=== PATIENT | female | born 1960 | race African-American/Black ===

== ENCOUNTER 2021-01-31 21:23 | Inpatient (IN) ==
[2021-01-31] MEDS ORDERED: LEVOFLOXACIN INJ 750 MG/150 ML PREMIX IV SCH (23:45)
[2021-01-31] MEDS ORDERED: ZALEPLON 5 MG CAPSULE PO PRN (23:48)
[2021-01-31] MEDS ORDERED: guaiFENesin/DM ER 600-30 MG TABLET PO PRN (23:48)
[2021-01-31] MEDS ORDERED: GLUCAGON 1 MG VIAL IM PRN (23:48)
[2021-01-31] MEDS ORDERED: DOCUSATE SODIUM 100 MG CAPSULE PO PRN (23:48)
[2021-01-31] MEDS ORDERED: hydrALAZINE 20 MG/1 ML VIAL IV PRN (23:48)
[2021-01-31] MEDS ORDERED: diphenhydrAMINE CAP 25 MG CAPSULE PO PRN (23:48)
[2021-01-31] MEDS ORDERED: DEXTROSE 50% 25 GM/50 ML VIAL IV PRN (23:48)
[2021-01-31] MEDS ORDERED: NICOTINE 21 MG/24 HR PATCH TRANSDERM PRN (23:48)
[2021-01-31] MEDS ORDERED: AZITHROMYCIN INJ 500 MG in SODIUM CHLORIDE 0.9% 250 ML IV ONE (23:51)
[2021-02-01] MEDS: cefTRIAXone 1,000 MG in SODIUM CHLORIDE 0.9% 100 ML IV SCH ×2 (00:35→23:02)
[2021-02-01 01:15] LABS: Basophils % 0.2 % (0.0-0.8); Hematocrit 54.3 VOL% (35.7-47.0); Hemoglobin 15.9 GM/DL (12.0-16.0); Immature Granulocytes Absolute 0.22 #; Lymphocytes # 0.4 10*3/uL (1.4-4.0); Lymphocytes % 7.6 % (21.3-54.2); Mean Corpuscular HGB Conc 29.3 GM/DL (32-36); Mean Corpuscular Volume 102.8 FL (87-102); Monocytes % 5.2 % (1.7-12.7); NRBC # 0.42 10*3/uL; Platelet Count 99 T/CUMM (130-400); Red Blood Count 5.28 MC/CUMM (3.8-5.5); White Blood Count 5.6 T/CUMM (4-12)
[2021-02-01 02:35] LABS: Osmolality,Calculated 286.7 MOS/KG (273-304); Potassium 3.6 MMOL/L (3.5-5.1)
[2021-02-01 04:56] LABS: Basophils % 0.4 % (0.0-0.8); Hematocrit 52.3 VOL% (35.7-47.0); Immature Granulocytes % 3.8 %; Immature Granulocytes Absolute 0.19 #; Lymphocytes # 0.4 10*3/uL (1.4-4.0); Lymphocytes % 7.7 % (21.3-54.2); Mean Corpuscular HGB Conc 30.2 GM/DL (32-36); Mean Corpuscular Volume 99.6 FL (87-102); Monocytes % 5.1 % (1.7-12.7); Red Blood Count 5.25 MC/CUMM (3.8-5.5); Red Cell Distribution Width 18.5 % (9.3-17.3)
[2021-02-01 04:58] LABS: Hemoglobin 15.8 GM/DL (12.0-16.0); Platelet Count 76 T/CUMM (130-400)
[2021-02-01 05:01] LABS: Platelet Estimate Decreased
[2021-02-01 07:49] LABS: Albumin 2.6 G/DL (3.4-5.0); Bilirubin,Total 3.2 MG/DL (0.2-1.0); Osmolality,Calculated 289.4 MOS/KG (273-304); Potassium 2.6 MMOL/L (3.5-5.1); Total Protein 6.7 G/DL (6.4-8.2)
[2021-02-01] MEDS: FAMOTIDINE 20 MG TABLET PO SCH ×2 (09:22→21:36)
[2021-02-01] MEDS: CHOLECALCIFEROL 1,000 UNIT TABLET PO SCH (09:22)
[2021-02-01] MEDS: ZINC GLUCONATE 50 MG TABLET PO SCH (09:22)
[2021-02-01] MEDS: DEXAMETHASONE 4 MG/1 ML VIAL IV SCH (09:22)
[2021-02-01] MEDS: PANTOPRAZOLE 40 MG TABLET PO SCH (09:22)
[2021-02-01] MEDS: ASCORBIC ACID 500 MG TABLET PO SCH ×2 (09:22→21:36)
[2021-02-01] MEDS ORDERED: POTASSIUM CHLORIDE 20 MEQ TABLET PO ONE ×3 (12:00→16:00)
[2021-02-01] MEDS ORDERED: SODIUM CHLORIDE 0.9% 1,000 ML IV PRN (15:54)
[2021-02-01] MEDS ORDERED: ENOXAPARIN 120 MG/0.8 ML SYRINGE SUBCUT SCH (20:00)
[2021-02-01 21:34] LABS: Calcium 8.2 MG/DL (8.5-10.1); Osmolality,Calculated 292.1 MOS/KG (273-304); Potassium 3.1 MMOL/L (3.5-5.1)
[2021-02-01] MEDS: APIXABAN 2.5 MG TABLET PO SCH (21:36)
[2021-02-02 06:57] LABS: Basophils % 0.4 % (0.0-0.8); Hematocrit 55.4 VOL% (35.7-47.0); Hemoglobin 16.2 GM/DL (12.0-16.0); Lymphocytes # 0.6 10*3/uL (1.4-4.0); Lymphocytes % 12.3 % (21.3-54.2); Mean Corpuscular HGB Conc 29.2 GM/DL (32-36); Mean Corpuscular Volume 104.7 FL (87-102); Mean Platelet Volume 12.6 FL (9.6-12.0); Monocytes % 14.5 % (1.7-12.7); NRBC # 0.21 10*3/uL; Neutrophils % 70.8 % (38.7-73.9); Red Blood Count 5.29 MC/CUMM (3.8-5.5); Red Cell Distribution Width 18.8 % (9.3-17.3); White Blood Count 5.1 T/CUMM (4-12)
[2021-02-02 06:59] LABS: Platelet Count 76 T/CUMM (130-400)
[2021-02-02 07:05] LABS: Albumin 2.6 G/DL (3.4-5.0); Bilirubin,Total 2.4 MG/DL (0.2-1.0); Ferritin 1210.2 ng/ml (8-252); Osmolality,Calculated 289.3 MOS/KG (273-304); Potassium 3.3 MMOL/L (3.5-5.1); Total Protein 7.2 G/DL (6.4-8.2)
[2021-02-02] MEDS: APIXABAN 2.5 MG TABLET PO SCH ×2 (08:34→21:00)
[2021-02-02] MEDS: DEXAMETHASONE 4 MG/1 ML VIAL IV SCH (08:34)
[2021-02-02] MEDS: FAMOTIDINE 20 MG TABLET PO SCH ×2 (08:35→21:00)
[2021-02-02] MEDS: ZINC GLUCONATE 50 MG TABLET PO SCH (08:35)
[2021-02-02] MEDS: ASCORBIC ACID 500 MG TABLET PO SCH ×2 (08:35→21:00)
[2021-02-02] MEDS: POTASSIUM CHLORIDE 20 MEQ TABLET PO PRN ×4 (08:35→21:51)
[2021-02-02] MEDS: CHOLECALCIFEROL 1,000 UNIT TABLET PO SCH (08:35)
[2021-02-02] MEDS: PANTOPRAZOLE 40 MG TABLET PO SCH (08:35)
[2021-02-02] MEDS ORDERED: POTASSIUM CHLORIDE 20 MEQ TABLET PO SCH (12:00)
[2021-02-02 12:50] LABS: Bacteria,Urine Occasional /HPF (Few); Bilirubin,Urine Negative (Negative); Blood, Urine Large mg/dL (Negative); Glucose,Urine (UA) Negative (Negative); Granular Casts,Urine 5 /LPF (0-1); Hyaline Casts,Urine 52 /LPF (0-3); Ketones,Urine Negative (Negative); Mucus,Urine Occasional /LPF (Occasional); Nitrite,Urine Negative (Negative); Protein,Urine 100 MG/DL; RBC,Urine 893 /HPF (0-4); Red Blood Cell Casts,Urine 10 /LPF (<1); Squamous Epithelial Cell,Urine Occasional /HPF (0-10); Urine Appearance CLOUDY (Clear); Urine Color Amber (Yellow); Urine Specific Gravity 1.016 (1.001-1.035)
[2021-02-02] MEDS ORDERED: ALBUTEROL INHALER 18 GM INH PRN (16:30)
[2021-02-02] MEDS: cefTRIAXone 1,000 MG in SODIUM CHLORIDE 0.9% 100 ML IV SCH (23:45)
[2021-02-03 05:34] LABS: Basophils % 0.2 % (0.0-0.8); Hematocrit 58.7 VOL% (35.7-47.0); Immature Granulocytes % 1.7 %; Immature Granulocytes Absolute 0.08 #; Lymphocytes # 0.4 10*3/uL (1.4-4.0); Lymphocytes % 8.8 % (21.3-54.2); Mean Corpuscular HGB Conc 27.3 GM/DL (32-36); Mean Corpuscular Volume 109.3 FL (87-102); Monocytes % 7.5 % (1.7-12.7); NRBC # 0.17 10*3/uL; Neutrophils % 81.8 % (38.7-73.9); Red Blood Count 5.37 MC/CUMM (3.8-5.5); Red Cell Distribution Width 18.7 % (9.3-17.3); White Blood Count 4.7 T/CUMM (4-12)
[2021-02-03 05:35] LABS: Platelet Count 71 T/CUMM (130-400)
[2021-02-03 05:40] LABS: Platelet Estimate Decreased
[2021-02-03 06:53] LABS: Albumin 2.5 G/DL (3.4-5.0); Bilirubin,Total 2.6 MG/DL (0.2-1.0); Calcium 8.1 MG/DL (8.5-10.1); Ferritin 1134.1 ng/ml (8-252); Osmolality,Calculated 280.5 MOS/KG (273-304); Potassium 3.6 MMOL/L (3.5-5.1); Total Protein 6.9 G/DL (6.4-8.2)
[2021-02-03] MEDS: FAMOTIDINE 20 MG TABLET PO SCH ×2 (08:15→21:15)
[2021-02-03] MEDS: ASCORBIC ACID 500 MG TABLET PO SCH ×2 (08:15→21:15)
[2021-02-03] MEDS: APIXABAN 2.5 MG TABLET PO SCH ×2 (08:15→21:15)
[2021-02-03] MEDS: ZINC GLUCONATE 50 MG TABLET PO SCH (08:15)
[2021-02-03] MEDS: PANTOPRAZOLE 40 MG TABLET PO SCH (08:15)
[2021-02-03] MEDS: POTASSIUM CHLORIDE 20 MEQ TABLET PO PRN ×2 (08:15→10:45)
[2021-02-03] MEDS: CHOLECALCIFEROL 1,000 UNIT TABLET PO SCH (08:15)
[2021-02-03] MEDS: DEXAMETHASONE 4 MG/1 ML VIAL IV SCH (08:16)
[2021-02-03] MEDS ORDERED: REMDESIVIR 200 MG in SODIUM CHLORIDE 0.9% 210 ML IV ONE (09:00)
[2021-02-03 10:12] LABS: Allen Test Positive
[2021-02-03 10:13] LABS: ABG Base Excess 22.7 MMOL/L (-2.5-2.5); ABG HCO3 47.7 MMOL/L (20-26); ABG Oxygen Saturation 87.7 % (95-100); ABG PH 7.353 (7.35-7.45); ABG PO2 55.2 MM HG (80-95); ABG TCO2 48.5 MMOL/L (23-27)
[2021-02-03] MEDS: ALBUTEROL INHALER 18 GM INH SCH ×4 (11:15→23:30)
[2021-02-03 17:22] LABS: ABG Base Excess 22.5 MMOL/L (-2.5-2.5); ABG HCO3 47.3 MMOL/L (20-26); ABG PH 7.413 (7.35-7.45); ABG PO2 48.5 MM HG (80-95); Allen Test Positive; Pt O2 Delivery Device BIPAP
[2021-02-03] MEDS ORDERED: FUROSEMIDE 40 MG/4 ML VIAL IV ONE (19:09)
[2021-02-03 20:46] LABS: ABG Base Excess 23.8 MMOL/L (-2.5-2.5); ABG HCO3 48.9 MMOL/L (20-26); ABG Oxygen Saturation 82.9 % (95-100); ABG PH 7.436 (7.35-7.45); ABG TCO2 46.8 MMOL/L (23-27)
[2021-02-03 20:47] LABS: ABG PCO2 84.3 MM HG (35-48)
[2021-02-03] MEDS ORDERED: LACTULOSE 20 GM/30 ML UDCUP PO SCH (21:00)
[2021-02-03] MEDS: MORPHINE 4 MG/1 ML VIAL IV PRN (22:35)
[2021-02-03 22:57] VITALS: BP 141/86
[2021-02-03] MEDS: cefTRIAXone 1,000 MG in SODIUM CHLORIDE 0.9% 100 ML IV SCH (23:31)
[2021-02-03 23:37] LABS: ABG Oxygen Saturation 92.3 % (95-100); ABG PH 7.447 (7.35-7.45); ABG PO2 58.9 MM HG (80-95); ABG TCO2 48.8 MMOL/L (23-27)
[2021-02-03 23:39] LABS: ABG PCO2 85.6 MM HG (35-48)
[2021-02-04 05:50] LABS: Ferritin 1402.3 ng/ml (8-252)
[2021-02-04 06:21] LABS: Albumin 2.6 G/DL (3.4-5.0); Bilirubin,Total 3.2 MG/DL (0.2-1.0); Calcium 8.9 MG/DL (8.5-10.1); Potassium 3.5 MMOL/L (3.5-5.1); Total Protein 7.8 G/DL (6.4-8.2)
[2021-02-04 06:39] LABS: Basophils % 0.3 % (0.0-0.8); Eosinophils % 0.2 % (0.00-10.9); Hematocrit 56.4 VOL% (35.7-47.0); Hemoglobin 16.9 GM/DL (12.0-16.0); Immature Granulocytes Absolute 0.12 #; Lymphocytes # 0.6 10*3/uL (1.4-4.0); Lymphocytes % 9.3 % (21.3-54.2); Mean Corpuscular Volume 101.1 FL (87-102); Monocytes % 7.6 % (1.7-12.7); NRBC # 0.13 10*3/uL; Neutrophils % 80.6 % (38.7-73.9); Red Blood Count 5.58 MC/CUMM (3.8-5.5); Red Cell Distribution Width 18.8 % (9.3-17.3); White Blood Count 5.9 T/CUMM (4-12)
[2021-02-04 06:42] LABS: Platelet Count 59 T/CUMM (130-400)
[2021-02-04 06:59] LABS: Platelet Estimate Decreased
[2021-02-04] MEDS: POTASSIUM CHLORIDE 20 MEQ TABLET PO PRN (08:14)
[2021-02-04] MEDS: ZINC GLUCONATE 50 MG TABLET PO SCH (08:14)
[2021-02-04] MEDS: acetaZOLAMIDE 250 MG TABLET PO SCH ×2 (08:14→21:33)
[2021-02-04] MEDS: PANTOPRAZOLE 40 MG TABLET PO SCH (08:14)
[2021-02-04 08:15] LABS: Allen Test Positive; Pt O2 Delivery Device BIPAP
[2021-02-04] MEDS: ASCORBIC ACID 500 MG TABLET PO SCH ×2 (08:15→21:33)
[2021-02-04] MEDS: FAMOTIDINE 20 MG TABLET PO SCH ×2 (08:15→21:33)
[2021-02-04] MEDS: CHOLECALCIFEROL 1,000 UNIT TABLET PO SCH (08:15)
[2021-02-04] MEDS: APIXABAN 2.5 MG TABLET PO SCH ×2 (08:15→21:33)
[2021-02-04 08:16] LABS: ABG Base Excess 23.6 MMOL/L (-2.5-2.5); ABG Oxygen Saturation 94.3 % (95-100); ABG PH 7.458 (7.35-7.45); ABG PO2 66.1 MM HG (80-95); ABG TCO2 45.5 MMOL/L (23-27)
[2021-02-04] MEDS: DEXAMETHASONE 4 MG/1 ML VIAL IV SCH (08:16)
[2021-02-04] MEDS: ALBUTEROL INHALER 18 GM INH SCH ×5 (08:17→22:57)
[2021-02-04 08:20] LABS: ABG PCO2 78.3 MM HG (35-48)
[2021-02-04] MEDS: MORPHINE 4 MG/1 ML VIAL IV PRN ×2 (09:33→15:25)
[2021-02-04] MEDS: REMDESIVIR 100 MG in SODIUM CHLORIDE 0.9% 100 ML IV SCH (09:35)
[2021-02-04] MEDS: LORazepam 2 MG/1 ML VIAL IV PRN ×2 (10:31→15:50)
[2021-02-04 13:49] LABS: INR 1.3; Partial Thromboplastin Time 33.4 SECS (23.9-33.8)
[2021-02-04] MEDS ORDERED: DEXMEDETOMIDINE 200 MCG in SODIUM CHLORIDE 0.9% 48 ML IV PRN ×2 (17:56→22:08)
[2021-02-04] MEDS ORDERED: DEXMEDETOMIDINE 400 MCG in SODIUM CHLORIDE 0.9% 96 ML IV PRN (22:09)
[2021-02-04] MEDS: cefTRIAXone 1,000 MG in SODIUM CHLORIDE 0.9% 100 ML IV SCH (22:57)
[2021-02-05] MEDS: LORazepam 2 MG/1 ML VIAL IV PRN ×2 (02:40→12:45)
[2021-02-05 06:22] LABS: Basophils % 0.2 % (0.0-0.8); Eosinophils % 0.6 % (0.00-10.9); Hematocrit 58.1 VOL% (35.7-47.0); Hemoglobin 16.2 GM/DL (12.0-16.0); Immature Granulocytes Absolute 0.05 #; Lymphocytes # 0.7 10*3/uL (1.4-4.0); Lymphocytes % 14.6 % (21.3-54.2); Mean Corpuscular HGB Conc 27.9 GM/DL (32-36); Mean Corpuscular Volume 106.6 FL (87-102); Monocytes % 9.8 % (1.7-12.7); NRBC # 0.05 10*3/uL; Neutrophils % 73.8 % (38.7-73.9); Platelet Count 63 T/CUMM (130-400); Red Blood Count 5.45 MC/CUMM (3.8-5.5); Red Cell Distribution Width 19.1 % (9.3-17.3)
[2021-02-05 06:27] LABS: Platelet Estimate Decreased
[2021-02-05 06:39] LABS: Albumin 2.5 G/DL (3.4-5.0); Bilirubin,Total 3.2 MG/DL (0.2-1.0); Calcium 8.8 MG/DL (8.5-10.1); Osmolality,Calculated 277.7 MOS/KG (273-304); Total Protein 7.4 G/DL (6.4-8.2)
[2021-02-05 06:43] LABS: Potassium 3.1 MMOL/L (3.5-5.1)
[2021-02-05 07:10] LABS: Folate 7.34 NG/ML (5.38-24.0)
[2021-02-05 07:57] LABS: INR 1.2; PT Patient Result 13.7 SECS (10.5-12.0)
[2021-02-05] MEDS: acetaZOLAMIDE 250 MG TABLET PO SCH ×2 (09:00→10:59)
[2021-02-05] MEDS: ASCORBIC ACID 500 MG TABLET PO SCH ×3 (09:00→20:36)
[2021-02-05] MEDS: ALBUTEROL INHALER 18 GM INH SCH ×5 (09:00→23:48)
[2021-02-05] MEDS: FAMOTIDINE 20 MG TABLET PO SCH ×2 (09:00→10:59)
[2021-02-05] MEDS: ZINC GLUCONATE 50 MG TABLET PO SCH ×2 (09:00→10:59)
[2021-02-05] MEDS: DEXAMETHASONE 4 MG/1 ML VIAL IV SCH (09:00)
[2021-02-05] MEDS: APIXABAN 2.5 MG TABLET PO SCH ×2 (09:00→10:59)
[2021-02-05] MEDS: CHOLECALCIFEROL 1,000 UNIT TABLET PO SCH ×2 (09:00→10:59)
[2021-02-05] MEDS: PANTOPRAZOLE 40 MG TABLET PO SCH (09:00)
[2021-02-05 09:12] LABS: Hepatitis B Core IgM Quant 0.08 Index; Hepatitis B Surface Ag Quant < 0.10 Index; Hepatitis B Surface Ag Result Non-Reactive (NonReactive); Hepatitis C Virus Ab Quant 0.24 Index; Hepatitis C Virus Ab Result Non-Reactive (NonReactive)
[2021-02-05] MEDS ORDERED: methylPREDNISolone SOD SUC 40 MG/1 ML VIAL IV SCH (09:30)
[2021-02-05] MEDS ORDERED: MAGNESIUM SULF RIDER 4 GM/100 ML PREMIX IV PRN (09:32)
[2021-02-05] MEDS: REMDESIVIR 100 MG in SODIUM CHLORIDE 0.9% 100 ML IV SCH (10:05)
[2021-02-05 10:26] LABS: ABG Base Excess 12.5 MMOL/L (-2.5-2.5); ABG HCO3 36.3 MMOL/L (20-26); ABG Oxygen Saturation 94.7 % (95-100); ABG PH 7.314 (7.35-7.45); ABG PO2 75.4 MM HG (80-95); ABG TCO2 38.2 MMOL/L (23-27)
[2021-02-05] MEDS: POTASSIUM CHLORIDE 20 MEQ TABLET PO PRN ×2 (10:59→12:18)
[2021-02-05 16:03] LABS: ABG Base Excess 10.3 MMOL/L (-2.5-2.5); ABG Oxygen Saturation 95.9 % (95-100); ABG PH 7.291 (7.35-7.45); ABG PO2 82.3 MM HG (80-95); ABG TCO2 36.6 MMOL/L (23-27)
[2021-02-05 16:04] LABS: Allen Test Positive; Pt O2 Delivery Device BIPAP
[2021-02-05 16:11] LABS: ABG PCO2 89.3 MM HG (35-48)
[2021-02-05] MEDS ORDERED: ETOMIDATE 20 MG/10 ML VIAL IV ONE ×2 (16:28→16:38)
[2021-02-05] MEDS ORDERED: SUCCINYLCHOLINE 200 MG/10 ML VIAL ONE (16:29)
[2021-02-05] MEDS ORDERED: SUCCINYLCHOLINE 200 MG/10 ML VIAL IV ONE (16:40)
[2021-02-05] MEDS ORDERED: SODIUM CHLORIDE 0.9% 1,000 ML IV ONE (17:24)
[2021-02-05] MEDS ORDERED: NOREPINEPHRINE 4 MG/4 ML VIAL IV ONE (17:26)
[2021-02-05] MEDS: NOREPINEPHRINE 8 MG in SODIUM CHLORIDE 0.9% 242 ML IV PRN (17:29)
[2021-02-05] MEDS ORDERED: PHENYLEPHRINE DRIP 40 MG/250 ML PREMIX IV ONE (17:37)
[2021-02-05] MEDS: MIDAZOLAM 100 MG in SODIUM CHLORIDE 0.9% 80 ML IV PRN (17:45)
[2021-02-05] MEDS: MORPHINE 4 MG/1 ML VIAL IV PRN (17:48)
[2021-02-05] MEDS: FONDAPARINUX 10 MG/0.8 ML SYRINGE SUBCUT SCH (18:17)
[2021-02-05 18:59] LABS: Basophils % 0.3 % (0.0-0.8); Eosinophils % 0.1 % (0.00-10.9); NRBC # 0.21 10*3/uL
[2021-02-05 19:10] LABS: INR 1.2
[2021-02-05 19:14] LABS: Albumin 2.8 G/DL (3.4-5.0); Bilirubin,Total 3.1 MG/DL (0.2-1.0); Calcium 9.3 MG/DL (8.5-10.1); Osmolality,Calculated 283.4 MOS/KG (273-304); Potassium 3.5 MMOL/L (3.5-5.1); Total Protein 8.2 G/DL (6.4-8.2)
[2021-02-05 19:20] LABS: Immature Granulocytes % 2.4 %; Immature Granulocytes Absolute 0.18 #; Lymphocytes # 0.8 10*3/uL (1.4-4.0); Lymphocytes % 10.2 % (21.3-54.2); Mean Corpuscular HGB Conc 28.4 GM/DL (32-36); Mean Corpuscular Volume 105.8 FL (87-102); Monocytes % 8.5 % (1.7-12.7); Neutrophils % 78.5 % (38.7-73.9); Platelet Count 90 T/CUMM (130-400); Red Blood Count 5.69 MC/CUMM (3.8-5.5); Red Cell Distribution Width 19.2 % (9.3-17.3); White Blood Count 7.6 T/CUMM (4-12)
[2021-02-05 19:22] LABS: Hemoglobin 17.1 GM/DL (12.0-16.0)
[2021-02-05 19:23] LABS: Hematocrit 60.2 VOL% (35.7-47.0)
[2021-02-05 20:10] LABS: Hypochromasia 2+
[2021-02-05 20:11] LABS: Platelet Estimate Decreased
[2021-02-05] MEDS: POTASSIUM CHLORIDE 20 MEQ/15 ML UDCUP PER TUBE PRN ×2 (20:37→23:40)
[2021-02-05] MEDS: CEFEPIME 1,000 MG in SODIUM CHLORIDE 0.9% 100 ML IV SCH (20:48)
[2021-02-05] MEDS ORDERED: SODIUM CHLORIDE 0.9% 500 ML IV ONE (20:56)
[2021-02-05] MEDS: SODIUM CHLORIDE 0.9% 1,000 ML IV SCH (21:31)
[2021-02-05] MEDS: methylPREDNISolone SOD SUC 40 MG/1 ML VIAL IV SCH (22:03)
[2021-02-05] MEDS: FAMOTIDINE 20 MG/2 ML VIAL IV SCH (22:05)
[2021-02-06] MEDS ORDERED: NOREPINEPHRINE 4 MG/4 ML VIAL IV ONE (00:07)
[2021-02-06] MEDS: MIDAZOLAM 100 MG in SODIUM CHLORIDE 0.9% 80 ML IV PRN ×3 (01:19→18:44)
[2021-02-06] MEDS: CEFEPIME 1,000 MG in SODIUM CHLORIDE 0.9% 100 ML IV SCH ×4 (02:36→20:20)
[2021-02-06] MEDS: methylPREDNISolone SOD SUC 40 MG/1 ML VIAL IV SCH ×4 (02:36→20:19)
[2021-02-06] MEDS: NOREPINEPHRINE 8 MG in SODIUM CHLORIDE 0.9% 242 ML IV PRN (03:33)
[2021-02-06 04:23] LABS: ABG Base Excess 1.1 MMOL/L (-2.5-2.5); ABG HCO3 22.5 MMOL/L (20-26); ABG Oxygen Saturation 98.9 % (95-100); ABG PCO2 28.2 MM HG (35-48); ABG PH 7.519 (7.35-7.45); ABG PO2 105.9 MM HG (80-95); ABG TCO2 23.3 MMOL/L (23-27); Allen Test Positive; Pt O2 Delivery Device Ventilator
[2021-02-06 05:39] LABS: Albumin 2.4 G/DL (3.4-5.0); Osmolality,Calculated 281.5 MOS/KG (273-304); Potassium 3.1 MMOL/L (3.5-5.1); Total Protein 7.6 G/DL (6.4-8.2)
[2021-02-06 06:05] LABS: Basophils % 0.3 % (0.0-0.8); Eosinophils % 0.2 % (0.00-10.9); Hematocrit 53.3 VOL% (35.7-47.0); Hemoglobin 16.3 GM/DL (12.0-16.0); Immature Granulocytes % 1.2 %; Immature Granulocytes Absolute 0.07 #; Lymphocytes # 0.4 10*3/uL (1.4-4.0); Lymphocytes % 7.2 % (21.3-54.2); Mean Corpuscular HGB Conc 30.6 GM/DL (32-36); Mean Corpuscular Volume 99.8 FL (87-102); NRBC # 0.04 10*3/uL; Neutrophils % 86.1 % (38.7-73.9); Platelet Count 64 T/CUMM (130-400); Red Blood Count 5.34 MC/CUMM (3.8-5.5); White Blood Count 5.8 T/CUMM (4-12)
[2021-02-06] MEDS: SODIUM CHLORIDE 0.9% 1,000 ML IV SCH ×3 (06:16→19:00)
[2021-02-06] MEDS: POTASSIUM CHLORIDE 20 MEQ/15 ML UDCUP PER TUBE PRN ×2 (06:20→20:20)
[2021-02-06] MEDS: ALBUTEROL INHALER 18 GM INH SCH ×5 (06:20→23:58)
[2021-02-06] MEDS: MAGNESIUM SULF RIDER 2 GM/50 ML PREMIX IV PRN (06:35)
[2021-02-06] MEDS: POTASSIUM CHLORIDE 20 MEQ TABLET PO PRN ×2 (09:38→11:00)
[2021-02-06] MEDS: ASCORBIC ACID 500 MG TABLET PO SCH ×2 (09:38→20:18)
[2021-02-06] MEDS: CHOLECALCIFEROL 1,000 UNIT TABLET PO SCH (09:38)
[2021-02-06] MEDS: ZINC GLUCONATE 50 MG TABLET PO SCH (09:38)
[2021-02-06] MEDS: FAMOTIDINE 20 MG/2 ML VIAL IV SCH ×2 (09:38→20:21)
[2021-02-06] MEDS: REMDESIVIR 100 MG in SODIUM CHLORIDE 0.9% 100 ML IV SCH (10:40)
[2021-02-06] MEDS: INSULIN REGULAR 100 UNIT/ML SUBCUT SCH ×3 (12:50→23:58)
[2021-02-06] MEDS: DESITIN 4OZ/NYSTATIN 15 GRAM MIXTURE PASTE TOP SCH (14:20)
[2021-02-06] MEDS: FONDAPARINUX 10 MG/0.8 ML SYRINGE SUBCUT SCH (16:10)
[2021-02-06] MEDS: fentaNYL INJ 1,250 MCG in SODIUM CHLORIDE 0.9% 225 ML IV PRN (20:50)
[2021-02-07] MEDS: DESITIN 4OZ/NYSTATIN 15 GRAM MIXTURE PASTE TOP SCH ×3 (02:05→22:07)
[2021-02-07] MEDS: methylPREDNISolone SOD SUC 40 MG/1 ML VIAL IV SCH ×4 (02:22→20:19)
[2021-02-07] MEDS: CEFEPIME 1,000 MG in SODIUM CHLORIDE 0.9% 100 ML IV SCH ×4 (03:09→20:20)
[2021-02-07] MEDS: MIDAZOLAM 100 MG in SODIUM CHLORIDE 0.9% 80 ML IV PRN ×2 (05:00→16:33)
[2021-02-07 05:09] LABS: Albumin 2.2 G/DL (3.4-5.0); Bilirubin,Total 3.2 MG/DL (0.2-1.0); Calcium 8.3 MG/DL (8.5-10.1); Potassium 3.1 MMOL/L (3.5-5.1)
[2021-02-07] MEDS: SODIUM CHLORIDE 0.9% 1,000 ML IV SCH (05:10)
[2021-02-07 05:12] LABS: Allen Test Positive; Pt O2 Delivery Device Ventilator
[2021-02-07 05:13] LABS: ABG Base Excess 1.5 MMOL/L (-2.5-2.5); ABG HCO3 25.7 MMOL/L (20-26); ABG Oxygen Saturation 98.2 % (95-100); ABG PCO2 35.2 MM HG (35-48); ABG PH 7.457 (7.35-7.45); ABG PO2 95.4 MM HG (80-95); ABG TCO2 21.2 MMOL/L (23-27)
[2021-02-07] MEDS: POTASSIUM CHLORIDE 20 MEQ/15 ML UDCUP PER TUBE PRN ×4 (05:46→16:11)
[2021-02-07] MEDS: INSULIN REGULAR 100 UNIT/ML SUBCUT SCH ×4 (05:46→23:34)
[2021-02-07] MEDS: ALBUTEROL INHALER 18 GM INH SCH ×5 (06:03→23:34)
[2021-02-07 06:05] LABS: Basophils % 0.2 % (0.0-0.8); Eosinophils % 0.2 % (0.00-10.9); Hemoglobin 14.9 GM/DL (12.0-16.0); Immature Granulocytes % 0.9 %; Immature Granulocytes Absolute 0.04 #; Lymphocytes # 0.3 10*3/uL (1.4-4.0); Lymphocytes % 7.4 % (21.3-54.2); Mean Corpuscular Volume 95.6 FL (87-102); Monocytes % 8.3 % (1.7-12.7); NRBC # 0.03 10*3/uL; Platelet Count 85 T/CUMM (130-400); Red Blood Count 5.02 MC/CUMM (3.8-5.5); Red Cell Distribution Width 18.6 % (9.3-17.3); White Blood Count 4.6 T/CUMM (4-12)
[2021-02-07 06:13] LABS: Lymphocytes 5 % (20-55); Nucleated Red Blood Cells 1 (0-5); Platelet Estimate Decreased; Segmented Neutrophils 84 % (50-85); Total Cells Counted 100
[2021-02-07] MEDS: fentaNYL INJ 1,250 MCG in SODIUM CHLORIDE 0.9% 225 ML IV PRN ×2 (06:59→17:49)
[2021-02-07] MEDS: NOREPINEPHRINE 8 MG in SODIUM CHLORIDE 0.9% 242 ML IV PRN (07:45)
[2021-02-07] MEDS: FAMOTIDINE 20 MG/2 ML VIAL IV SCH ×2 (08:21→20:20)
[2021-02-07] MEDS: ASCORBIC ACID 500 MG TABLET PO SCH ×2 (08:22→20:20)
[2021-02-07] MEDS: CHOLECALCIFEROL 1,000 UNIT TABLET PO SCH (08:22)
[2021-02-07] MEDS: ZINC GLUCONATE 50 MG TABLET PO SCH (08:22)
[2021-02-07] MEDS: SODIUM CHLORIDE 0.45% 1,000 ML IV SCH ×2 (09:24→23:29)
[2021-02-07] MEDS ORDERED: POTASSIUM PHOSPHATE 40 MMOL in SODIUM CHLORIDE 0.9% 250 ML IV ONE (10:00)
[2021-02-07] MEDS: REMDESIVIR 100 MG in SODIUM CHLORIDE 0.9% 100 ML IV SCH (10:24)
[2021-02-07] MEDS: FONDAPARINUX 10 MG/0.8 ML SYRINGE SUBCUT SCH (16:11)
[2021-02-07] MEDS ORDERED: INSULIN GLARGINE 100 UNIT/ML SUBCUT SCH (21:00)
[2021-02-08] MEDS: CEFEPIME 1,000 MG in SODIUM CHLORIDE 0.9% 100 ML IV SCH ×4 (03:28→20:14)
[2021-02-08] MEDS: methylPREDNISolone SOD SUC 40 MG/1 ML VIAL IV SCH ×4 (03:28→20:13)
[2021-02-08 03:56] LABS: Basophils % 0.2 % (0.0-0.8); Hematocrit 46.4 VOL% (35.7-47.0); Hemoglobin 14.2 GM/DL (12.0-16.0); Immature Granulocytes % 0.7 %; Immature Granulocytes Absolute 0.03 #; Lymphocytes # 0.3 10*3/uL (1.4-4.0); Lymphocytes % 7.3 % (21.3-54.2); Mean Corpuscular HGB Conc 30.6 GM/DL (32-36); Mean Corpuscular Volume 97.1 FL (87-102); Monocytes % 8.5 % (1.7-12.7); Neutrophils % 83.3 % (38.7-73.9); Red Blood Count 4.78 MC/CUMM (3.8-5.5); Red Cell Distribution Width 18.8 % (9.3-17.3); White Blood Count 4.2 T/CUMM (4-12)
[2021-02-08 03:59] LABS: Platelet Count 104 T/CUMM (130-400)
[2021-02-08 04:14] LABS: Platelet Estimate Decreased
[2021-02-08 04:16] LABS: Albumin 2.1 G/DL (3.4-5.0); Osmolality,Calculated 298.8 MOS/KG (273-304); Potassium 3.9 MMOL/L (3.5-5.1); Total Protein 6.6 G/DL (6.4-8.2)
[2021-02-08 04:25] LABS: ABG Base Excess -2.7 MMOL/L (-2.5-2.5); ABG HCO3 22.2 MMOL/L (20-26); ABG Oxygen Saturation 96.9 % (95-100); ABG PCO2 36.7 MM HG (35-48); ABG PH 7.383 (7.35-7.45); ABG PO2 88.6 MM HG (80-95); ABG TCO2 18.9 MMOL/L (23-27); Allen Test Positive; Pt O2 Delivery Device Ventilator
[2021-02-08] MEDS: fentaNYL INJ 1,250 MCG in SODIUM CHLORIDE 0.9% 225 ML IV PRN ×2 (06:11→20:00)
[2021-02-08] MEDS: INSULIN REGULAR 100 UNIT/ML SUBCUT SCH ×3 (06:34→18:42)
[2021-02-08] MEDS: ALBUTEROL INHALER 18 GM INH SCH ×4 (08:32→18:42)
[2021-02-08] MEDS: ASCORBIC ACID 500 MG TABLET PO SCH ×2 (08:32→20:13)
[2021-02-08] MEDS: CHOLECALCIFEROL 1,000 UNIT TABLET PO SCH (08:32)
[2021-02-08] MEDS: ZINC GLUCONATE 50 MG TABLET PO SCH (08:32)
[2021-02-08] MEDS: FAMOTIDINE 20 MG/2 ML VIAL IV SCH ×2 (08:33→20:14)
[2021-02-08] MEDS: DESITIN 4OZ/NYSTATIN 15 GRAM MIXTURE PASTE TOP SCH ×2 (08:34→20:14)
[2021-02-08] MEDS: SODIUM CHLORIDE 0.45% 1,000 ML IV SCH ×2 (11:35→19:00)
[2021-02-08] MEDS: FONDAPARINUX 10 MG/0.8 ML SYRINGE SUBCUT SCH (18:42)
[2021-02-08] MEDS: INSULIN GLARGINE 100 UNIT/ML SUBCUT SCH (20:13)
[2021-02-09] MEDS: ALBUTEROL INHALER 18 GM INH SCH ×6 (00:17→23:00)
[2021-02-09] MEDS: INSULIN REGULAR 100 UNIT/ML SUBCUT SCH ×4 (00:34→18:16)
[2021-02-09] MEDS: SODIUM CHLORIDE 0.45% 1,000 ML IV SCH ×3 (00:36→17:09)
[2021-02-09] MEDS: MIDAZOLAM 100 MG in SODIUM CHLORIDE 0.9% 80 ML IV PRN ×2 (02:00→21:11)
[2021-02-09] MEDS: CEFEPIME 1,000 MG in SODIUM CHLORIDE 0.9% 100 ML IV SCH ×4 (02:30→20:27)
[2021-02-09] MEDS: methylPREDNISolone SOD SUC 40 MG/1 ML VIAL IV SCH ×4 (03:31→20:27)
[2021-02-09 03:40] LABS: Hematocrit 44.7 VOL% (35.7-47.0); Hemoglobin 13.6 GM/DL (12.0-16.0); Immature Granulocytes % 0.6 %; Immature Granulocytes Absolute 0.02 #; Lymphocytes # 0.3 10*3/uL (1.4-4.0); Lymphocytes % 8.8 % (21.3-54.2); Mean Corpuscular HGB Conc 30.4 GM/DL (32-36); Mean Corpuscular Volume 97.4 FL (87-102); Monocytes % 11.6 % (1.7-12.7); Platelet Count 64 T/CUMM (130-400); Red Blood Count 4.59 MC/CUMM (3.8-5.5); Red Cell Distribution Width 18.4 % (9.3-17.3); White Blood Count 3.5 T/CUMM (4-12)
[2021-02-09 04:33] LABS: Hypochromasia 1+
[2021-02-09 04:34] LABS: Microcytosis 1+; Ovalocytes Slight; Platelet Estimate Decreased
[2021-02-09 04:38] LABS: Bilirubin,Total 1.5 MG/DL (0.2-1.0); Calcium 7.7 MG/DL (8.5-10.1); Osmolality,Calculated 292.3 MOS/KG (273-304); Potassium 3.8 MMOL/L (3.5-5.1); Total Protein 5.7 G/DL (6.4-8.2)
[2021-02-09 04:51] LABS: ABG Base Excess -3.1 MMOL/L (-2.5-2.5); ABG HCO3 21.9 MMOL/L (20-26); ABG PCO2 35.4 MM HG (35-48); ABG PH 7.386 (7.35-7.45); ABG TCO2 18.4 MMOL/L (23-27)
[2021-02-09] MEDS: fentaNYL INJ 1,250 MCG in SODIUM CHLORIDE 0.9% 225 ML IV PRN ×2 (08:00→21:10)
[2021-02-09] MEDS: FAMOTIDINE 20 MG/2 ML VIAL IV SCH ×2 (09:14→20:27)
[2021-02-09] MEDS: DESITIN 4OZ/NYSTATIN 15 GRAM MIXTURE PASTE TOP SCH ×2 (09:14→20:28)
[2021-02-09] MEDS: ASCORBIC ACID 500 MG TABLET PO SCH ×2 (09:15→20:28)
[2021-02-09] MEDS: CHOLECALCIFEROL 1,000 UNIT TABLET PO SCH (09:15)
[2021-02-09] MEDS: ZINC GLUCONATE 50 MG TABLET PO SCH (09:15)
[2021-02-09] MEDS: FONDAPARINUX 10 MG/0.8 ML SYRINGE SUBCUT SCH (16:00)
[2021-02-09 17:24] LABS: ABG Base Excess -3.9 MMOL/L (-2.5-2.5); ABG HCO3 21.2 MMOL/L (20-26); ABG Oxygen Saturation 96.9 % (95-100); ABG PCO2 44.5 MM HG (35-48); ABG PH 7.313 (7.35-7.45); ABG PO2 96.5 MM HG (80-95); ABG TCO2 19.5 MMOL/L (23-27)
[2021-02-09] MEDS: INSULIN GLARGINE 100 UNIT/ML SUBCUT SCH (20:28)
[2021-02-10] MEDS: INSULIN REGULAR 100 UNIT/ML SUBCUT SCH ×4 (00:24→18:10)
[2021-02-10] MEDS: SODIUM CHLORIDE 0.45% 1,000 ML IV SCH ×5 (02:03→21:57)
[2021-02-10] MEDS: CEFEPIME 1,000 MG in SODIUM CHLORIDE 0.9% 100 ML IV SCH ×4 (02:11→21:03)
[2021-02-10] MEDS: methylPREDNISolone SOD SUC 40 MG/1 ML VIAL IV SCH ×4 (03:08→21:03)
[2021-02-10 04:17] LABS: Hematocrit 46.4 VOL% (35.7-47.0); Hemoglobin 14.3 GM/DL (12.0-16.0); Immature Granulocytes % 0.4 %; Immature Granulocytes Absolute 0.02 #; Lymphocytes # 0.3 10*3/uL (1.4-4.0); Lymphocytes % 6.8 % (21.3-54.2); Mean Corpuscular HGB Conc 30.8 GM/DL (32-36); Mean Corpuscular Volume 97.3 FL (87-102); Monocytes % 13.4 % (1.7-12.7); Neutrophils % 79.4 % (38.7-73.9); Platelet Count 63 T/CUMM (130-400); Red Blood Count 4.77 MC/CUMM (3.8-5.5); Red Cell Distribution Width 18.4 % (9.3-17.3)
[2021-02-10 04:27] LABS: Albumin 2.1 G/DL (3.4-5.0); Bilirubin,Total 1.3 MG/DL (0.2-1.0); Calcium 8.4 MG/DL (8.5-10.1); Osmolality,Calculated 290.3 MOS/KG (273-304); Potassium 3.9 MMOL/L (3.5-5.1); Total Protein 6.3 G/DL (6.4-8.2)
[2021-02-10 05:00] LABS: ABG Base Excess -5.1 MMOL/L (-2.5-2.5); ABG HCO3 21.4 MMOL/L (20-26); ABG Oxygen Saturation 98.9 % (95-100); ABG PCO2 44.7 MM HG (35-48); ABG PH 7.297 (7.35-7.45); ABG PO2 140.8 MM HG (80-95); ABG TCO2 22.7 MMOL/L (23-27); Allen Test Positive; Pt O2 Delivery Device Ventilator
[2021-02-10 05:51] LABS: Anisocytosis 1+; Burr Cells Few; Macrocytosis 1+; Platelet Estimate Decreased
[2021-02-10] MEDS: ALBUTEROL INHALER 18 GM INH SCH ×5 (06:39→22:57)
[2021-02-10] MEDS ORDERED: SODIUM CHLORIDE 0.9% 500 ML IV ONE (07:54)
[2021-02-10] MEDS: ASCORBIC ACID 500 MG TABLET PO SCH ×2 (08:09→21:03)
[2021-02-10] MEDS: CHOLECALCIFEROL 1,000 UNIT TABLET PO SCH (08:09)
[2021-02-10] MEDS: ZINC GLUCONATE 50 MG TABLET PO SCH (08:10)
[2021-02-10] MEDS: FAMOTIDINE 20 MG/2 ML VIAL IV SCH ×2 (08:10→21:03)
[2021-02-10] MEDS: DESITIN 4OZ/NYSTATIN 15 GRAM MIXTURE PASTE TOP SCH ×2 (08:10→21:04)
[2021-02-10] MEDS: fentaNYL INJ 1,250 MCG in SODIUM CHLORIDE 0.9% 225 ML IV PRN (08:30)
[2021-02-10] MEDS: LORazepam 2 MG/1 ML VIAL IV PRN (13:50)
[2021-02-10] MEDS: DEXMEDETOMIDINE 200 MCG in SODIUM CHLORIDE 0.9% 48 ML IV PRN ×2 (14:05→18:49)
[2021-02-10] MEDS: FONDAPARINUX 10 MG/0.8 ML SYRINGE SUBCUT SCH (15:17)
[2021-02-10] MEDS ORDERED: SODIUM CHLORIDE 0.9% 1,000 ML IV ONE (18:09)
[2021-02-10] MEDS: INSULIN GLARGINE 100 UNIT/ML SUBCUT SCH (21:03)
[2021-02-10] MEDS: DEXMEDETOMIDINE 400 MCG in SODIUM CHLORIDE 0.9% 96 ML IV PRN (22:57)
[2021-02-11] MEDS: INSULIN REGULAR 100 UNIT/ML SUBCUT SCH ×4 (00:07→18:15)
[2021-02-11] MEDS: methylPREDNISolone SOD SUC 40 MG/1 ML VIAL IV SCH ×3 (03:40→21:02)
[2021-02-11] MEDS: CEFEPIME 1,000 MG in SODIUM CHLORIDE 0.9% 100 ML IV SCH ×4 (03:40→21:00)
[2021-02-11 04:44] LABS: ABG Base Excess -5.5 MMOL/L (-2.5-2.5); ABG HCO3 19.8 MMOL/L (20-26); ABG Oxygen Saturation 96.1 % (95-100); ABG PCO2 38.2 MM HG (35-48); ABG PH 7.333 (7.35-7.45); ABG PO2 83.4 MM HG (80-95); Allen Test Positive; Pt O2 Delivery Device Ventilator
[2021-02-11 04:50] LABS: Hematocrit 45.8 VOL% (35.7-47.0); Immature Granulocytes % 0.8 %; Immature Granulocytes Absolute 0.04 #; Lymphocytes # 0.3 10*3/uL (1.4-4.0); Lymphocytes % 6.1 % (21.3-54.2); Mean Corpuscular HGB Conc 30.6 GM/DL (32-36); Mean Corpuscular Volume 98.5 FL (87-102); Monocytes % 11.3 % (1.7-12.7); Neutrophils % 81.8 % (38.7-73.9); Platelet Count 56 T/CUMM (130-400); Red Blood Count 4.65 MC/CUMM (3.8-5.5); Red Cell Distribution Width 17.9 % (9.3-17.3); White Blood Count 4.9 T/CUMM (4-12)
[2021-02-11 05:31] LABS: Albumin 2.1 G/DL (3.4-5.0); Bilirubin,Total 1.7 MG/DL (0.2-1.0); Calcium 8.1 MG/DL (8.5-10.1); Osmolality,Calculated 290.4 MOS/KG (273-304); Potassium 4.2 MMOL/L (3.5-5.1); Total Protein 5.8 G/DL (6.4-8.2)
[2021-02-11] MEDS: ALBUTEROL INHALER 18 GM INH SCH ×5 (06:05→22:53)
[2021-02-11 07:38] LABS: Platelet Estimate Decreased
[2021-02-11 07:39] LABS: Anisocytosis 1+; Macrocytosis Slight
[2021-02-11] MEDS: SODIUM CHLORIDE 0.45% 1,000 ML IV SCH (08:27)
[2021-02-11] MEDS: DEXMEDETOMIDINE 400 MCG in SODIUM CHLORIDE 0.9% 96 ML IV PRN ×2 (09:17→18:15)
[2021-02-11] MEDS: ASCORBIC ACID 500 MG TABLET PO SCH ×2 (09:18→21:02)
[2021-02-11] MEDS: CHOLECALCIFEROL 1,000 UNIT TABLET PO SCH (09:18)
[2021-02-11] MEDS: DESITIN 4OZ/NYSTATIN 15 GRAM MIXTURE PASTE TOP SCH ×2 (09:18→21:02)
[2021-02-11] MEDS: ZINC GLUCONATE 50 MG TABLET PO SCH (09:18)
[2021-02-11] MEDS: FAMOTIDINE 20 MG/2 ML VIAL IV SCH ×2 (09:18→21:02)
[2021-02-11 12:57] LABS: ABG Base Excess -4.8 MMOL/L (-2.5-2.5); ABG HCO3 20.5 MMOL/L (20-26); ABG Oxygen Saturation 98.8 % (95-100); ABG PCO2 48.6 MM HG (35-48); ABG PH 7.276 (7.35-7.45); ABG TCO2 19.5 MMOL/L (23-27)
[2021-02-11] MEDS: ACETAMINOPHEN 325 MG TABLET PO PRN (15:15)
[2021-02-11] MEDS: FONDAPARINUX 10 MG/0.8 ML SYRINGE SUBCUT SCH (15:33)
[2021-02-11] MEDS: INSULIN GLARGINE 100 UNIT/ML SUBCUT SCH (21:00)
[2021-02-12] MEDS: INSULIN REGULAR 100 UNIT/ML SUBCUT SCH ×5 (00:14→23:49)
[2021-02-12] MEDS: DEXMEDETOMIDINE 400 MCG in SODIUM CHLORIDE 0.9% 96 ML IV PRN ×5 (01:20→23:06)
[2021-02-12] MEDS: CEFEPIME 1,000 MG in SODIUM CHLORIDE 0.9% 100 ML IV SCH ×4 (01:51→20:47)
[2021-02-12 04:26] LABS: Basophils % 0.2 % (0.0-0.8); Hematocrit 46.8 VOL% (35.7-47.0); Hemoglobin 14.3 GM/DL (12.0-16.0); Immature Granulocytes % 0.5 %; Immature Granulocytes Absolute 0.03 #; Lymphocytes # 0.4 10*3/uL (1.4-4.0); Lymphocytes % 5.9 % (21.3-54.2); Mean Corpuscular HGB Conc 30.6 GM/DL (32-36); Mean Corpuscular Volume 95.3 FL (87-102); Monocytes % 9.8 % (1.7-12.7); Neutrophils % 83.6 % (38.7-73.9); Platelet Count 56 T/CUMM (130-400); Red Blood Count 4.91 MC/CUMM (3.8-5.5); Red Cell Distribution Width 17.2 % (9.3-17.3); White Blood Count 6.3 T/CUMM (4-12)
[2021-02-12 04:48] LABS: Platelet Estimate Decreased
[2021-02-12 04:50] LABS: ABG Base Excess -0.3 MMOL/L (-2.5-2.5); ABG HCO3 24.2 MMOL/L (20-26); ABG PCO2 33.3 MM HG (35-48); ABG PH 7.445 (7.35-7.45); ABG TCO2 19.5 MMOL/L (23-27); Allen Test Positive; Pt O2 Delivery Device Ventilator
[2021-02-12 05:00] LABS: Calcium 8.6 MG/DL (8.5-10.1); Osmolality,Calculated 284.5 MOS/KG (273-304); Potassium 4.4 MMOL/L (3.5-5.1)
[2021-02-12] MEDS: ALBUTEROL INHALER 18 GM INH SCH ×5 (06:25→22:15)
[2021-02-12] MEDS: ZINC GLUCONATE 50 MG TABLET PO SCH (08:30)
[2021-02-12] MEDS: methylPREDNISolone SOD SUC 40 MG/1 ML VIAL IV SCH ×2 (08:30→20:48)
[2021-02-12] MEDS: DESITIN 4OZ/NYSTATIN 15 GRAM MIXTURE PASTE TOP SCH ×2 (08:30→20:50)
[2021-02-12] MEDS: ASCORBIC ACID 500 MG TABLET PO SCH ×2 (08:30→20:48)
[2021-02-12] MEDS: FAMOTIDINE 20 MG/2 ML VIAL IV SCH ×2 (08:30→20:48)
[2021-02-12] MEDS: CHOLECALCIFEROL 1,000 UNIT TABLET PO SCH (08:30)
[2021-02-12] MEDS ORDERED: POTASSIUM PHOSPHATE 30 MMOL in SODIUM CHLORIDE 0.9% 250 ML IV ONE (08:49)
[2021-02-12] MEDS ORDERED: FUROSEMIDE 40 MG/4 ML VIAL IV ONE (08:52)
[2021-02-12 10:26] LABS: Allen Test Positive; Pt O2 Delivery Device Ventilator
[2021-02-12 10:27] LABS: ABG Base Excess -0.9 MMOL/L (-2.5-2.5); ABG HCO3 23.7 MMOL/L (20-26); ABG Oxygen Saturation 97.9 % (95-100); ABG PCO2 46.4 MM HG (35-48); ABG PH 7.345 (7.35-7.45); ABG TCO2 21.9 MMOL/L (23-27)
[2021-02-12] MEDS: FONDAPARINUX 10 MG/0.8 ML SYRINGE SUBCUT SCH (16:00)
[2021-02-12] MEDS: INSULIN GLARGINE 100 UNIT/ML SUBCUT SCH (20:47)
[2021-02-13] MEDS: LORazepam 2 MG/1 ML VIAL IV PRN ×2 (00:14→20:56)
[2021-02-13] MEDS: CEFEPIME 1,000 MG in SODIUM CHLORIDE 0.9% 100 ML IV SCH (01:52)
[2021-02-13 03:42] LABS: ABG Oxygen Saturation 98.6 % (95-100); ABG PCO2 35.2 MM HG (35-48); ABG PH 7.493 (7.35-7.45); ABG PO2 99.5 MM HG (80-95); ABG TCO2 22.9 MMOL/L (23-27)
[2021-02-13 04:21] LABS: Hematocrit 44.4 VOL% (35.7-47.0); Immature Granulocytes % 0.4 %; Immature Granulocytes Absolute 0.03 #; Lymphocytes # 0.4 10*3/uL (1.4-4.0); Lymphocytes % 5.4 % (21.3-54.2); Mean Corpuscular HGB Conc 31.5 GM/DL (32-36); Mean Corpuscular Volume 93.5 FL (87-102); Monocytes % 8.6 % (1.7-12.7); Neutrophils % 85.6 % (38.7-73.9); Platelet Count 77 T/CUMM (130-400); Red Blood Count 4.75 MC/CUMM (3.8-5.5); Red Cell Distribution Width 16.3 % (9.3-17.3); White Blood Count 7.4 T/CUMM (4-12)
[2021-02-13 04:40] LABS: Lymphocytes 4 % (20-55); Platelet Estimate Decreased; Segmented Neutrophils 83 % (50-85); Total Cells Counted 100
[2021-02-13 04:48] LABS: Albumin 1.9 G/DL (3.4-5.0); Bilirubin,Total 2.5 MG/DL (0.2-1.0); Calcium 8.7 MG/DL (8.5-10.1); Total Protein 6.4 G/DL (6.4-8.2)
[2021-02-13] MEDS: DEXMEDETOMIDINE 400 MCG in SODIUM CHLORIDE 0.9% 96 ML IV PRN ×4 (05:01→21:24)
[2021-02-13] MEDS: INSULIN REGULAR 100 UNIT/ML SUBCUT SCH ×3 (05:05→18:08)
[2021-02-13] MEDS: ALBUTEROL INHALER 18 GM INH SCH ×5 (06:02→23:26)
[2021-02-13] MEDS: DESITIN 4OZ/NYSTATIN 15 GRAM MIXTURE PASTE TOP SCH ×2 (08:14→20:56)
[2021-02-13] MEDS: ZINC GLUCONATE 50 MG TABLET PO SCH (08:14)
[2021-02-13] MEDS: CHOLECALCIFEROL 1,000 UNIT TABLET PO SCH (08:14)
[2021-02-13] MEDS: ASCORBIC ACID 500 MG TABLET PO SCH ×2 (08:14→20:55)
[2021-02-13] MEDS: methylPREDNISolone SOD SUC 40 MG/1 ML VIAL IV SCH ×2 (08:15→20:55)
[2021-02-13] MEDS: FAMOTIDINE 20 MG/2 ML VIAL IV SCH ×2 (08:15→20:55)
[2021-02-13] MEDS ORDERED: FUROSEMIDE 40 MG/4 ML VIAL IV ONE (08:38)
[2021-02-13] MEDS ORDERED: POTASSIUM PHOSPHATE 20 MMOL in SODIUM CHLORIDE 0.9% 100 ML IV ONE (10:00)
[2021-02-13] MEDS: FONDAPARINUX 10 MG/0.8 ML SYRINGE SUBCUT SCH (17:00)
[2021-02-13] MEDS: INSULIN GLARGINE 100 UNIT/ML SUBCUT SCH (20:55)
[2021-02-13] MEDS: ACETAMINOPHEN 325 MG TABLET PO PRN (21:01)
[2021-02-14] MEDS: INSULIN REGULAR 100 UNIT/ML SUBCUT SCH ×4 (00:01→18:21)
[2021-02-14] MEDS: LORazepam 2 MG/1 ML VIAL IV PRN ×2 (00:02→04:36)
[2021-02-14] MEDS: DEXMEDETOMIDINE 400 MCG in SODIUM CHLORIDE 0.9% 96 ML IV PRN (03:26)
[2021-02-14 04:07] LABS: ABG Base Excess 6.2 MMOL/L (-2.5-2.5); ABG HCO3 28.3 MMOL/L (20-26); ABG Oxygen Saturation 97.8 % (95-100); ABG PCO2 33.2 MM HG (35-48); ABG PH 7.548 (7.35-7.45); ABG PO2 94.6 MM HG (80-95); ABG TCO2 29.3 MMOL/L (23-27); Allen Test Positive; Pt O2 Delivery Device Ventilator
[2021-02-14 05:12] LABS: Basophils % 0.1 % (0.0-0.8); Hematocrit 45.4 VOL% (35.7-47.0); Hemoglobin 14.4 GM/DL (12.0-16.0); Immature Granulocytes % 0.5 %; Immature Granulocytes Absolute 0.04 #; Lymphocytes # 0.6 10*3/uL (1.4-4.0); Lymphocytes % 8.2 % (21.3-54.2); Mean Corpuscular HGB Conc 31.7 GM/DL (32-36); Mean Corpuscular Volume 93.2 FL (87-102); Monocytes % 10.4 % (1.7-12.7); Neutrophils % 80.8 % (38.7-73.9); Platelet Count 100 T/CUMM (130-400); Red Blood Count 4.87 MC/CUMM (3.8-5.5); Red Cell Distribution Width 15.9 % (9.3-17.3); White Blood Count 7.6 T/CUMM (4-12)
[2021-02-14 05:35] LABS: Bilirubin,Total 2.3 MG/DL (0.2-1.0); Calcium 9.1 MG/DL (8.5-10.1); Osmolality,Calculated 281.1 MOS/KG (273-304); Potassium 3.9 MMOL/L (3.5-5.1); Total Protein 6.8 G/DL (6.4-8.2)
[2021-02-14] MEDS: ALBUTEROL INHALER 18 GM INH SCH ×4 (08:13→18:21)
[2021-02-14] MEDS: methylPREDNISolone SOD SUC 40 MG/1 ML VIAL IV SCH ×2 (08:13→21:08)
[2021-02-14] MEDS: CHOLECALCIFEROL 1,000 UNIT TABLET PO SCH (08:13)
[2021-02-14] MEDS: POTASSIUM CHLORIDE 20 MEQ/15 ML UDCUP PER TUBE PRN (08:13)
[2021-02-14] MEDS: DESITIN 4OZ/NYSTATIN 15 GRAM MIXTURE PASTE TOP SCH ×2 (08:13→21:05)
[2021-02-14] MEDS: FAMOTIDINE 20 MG/2 ML VIAL IV SCH ×2 (08:13→21:05)
[2021-02-14] MEDS: ZINC GLUCONATE 50 MG TABLET PO SCH (08:13)
[2021-02-14] MEDS: ASCORBIC ACID 500 MG TABLET PO SCH ×2 (08:13→21:05)
[2021-02-14] MEDS ORDERED: POTASSIUM PHOSPHATE 30 MMOL in SODIUM CHLORIDE 0.9% 250 ML IV ONE (10:00)
[2021-02-14] MEDS: FONDAPARINUX 10 MG/0.8 ML SYRINGE SUBCUT SCH (18:21)
[2021-02-14] MEDS: INSULIN GLARGINE 100 UNIT/ML SUBCUT SCH (23:36)
[2021-02-15] MEDS: INSULIN REGULAR 100 UNIT/ML SUBCUT SCH ×2 (01:01→06:32)
[2021-02-15 04:50] LABS: ABG Base Excess 5.6 MMOL/L (-2.5-2.5); ABG HCO3 29.4 MMOL/L (20-26); ABG Oxygen Saturation 95.1 % (95-100); ABG PCO2 46.6 MM HG (35-48); ABG PH 7.431 (7.35-7.45); ABG PO2 76.8 MM HG (80-95); ABG TCO2 26.4 MMOL/L (23-27); Allen Test Positive
[2021-02-15] MEDS: ALBUTEROL INHALER 18 GM INH SCH ×5 (06:54→20:36)
[2021-02-15 07:05] LABS: Basophils % 0.1 % (0.0-0.8); Hematocrit 44.1 VOL% (35.7-47.0); Immature Granulocytes % 0.6 %; Immature Granulocytes Absolute 0.05 #; Lymphocytes # 0.7 10*3/uL (1.4-4.0); Lymphocytes % 8.1 % (21.3-54.2); Mean Corpuscular HGB Conc 31.7 GM/DL (32-36); Mean Corpuscular Volume 94.4 FL (87-102); Monocytes % 13.5 % (1.7-12.7); Neutrophils % 77.7 % (38.7-73.9); Platelet Count 97 T/CUMM (130-400); Red Blood Count 4.67 MC/CUMM (3.8-5.5); Red Cell Distribution Width 16.1 % (9.3-17.3); White Blood Count 8.4 T/CUMM (4-12)
[2021-02-15 07:25] LABS: Albumin 2.3 G/DL (3.4-5.0); Bilirubin,Total 2.3 MG/DL (0.2-1.0); Calcium 9.1 MG/DL (8.5-10.1); Osmolality,Calculated 278.7 MOS/KG (273-304); Platelet Estimate Decreased; Potassium 3.8 MMOL/L (3.5-5.1); Total Protein 6.7 G/DL (6.4-8.2)
[2021-02-15] MEDS: CHOLECALCIFEROL 1,000 UNIT TABLET PO SCH (08:50)
[2021-02-15] MEDS: ZINC GLUCONATE 50 MG TABLET PO SCH (08:50)
[2021-02-15] MEDS: DESITIN 4OZ/NYSTATIN 15 GRAM MIXTURE PASTE TOP SCH ×2 (08:50→20:44)
[2021-02-15] MEDS: ASCORBIC ACID 500 MG TABLET PO SCH ×2 (08:50→20:39)
[2021-02-15] MEDS: FAMOTIDINE 20 MG/2 ML VIAL IV SCH ×2 (08:50→20:42)
[2021-02-15] MEDS: methylPREDNISolone SOD SUC 40 MG/1 ML VIAL IV SCH ×2 (08:50→20:38)
[2021-02-15] MEDS: FUROSEMIDE 40 MG TABLET PO SCH (12:15)
[2021-02-15] MEDS: FONDAPARINUX 10 MG/0.8 ML SYRINGE SUBCUT SCH (15:45)
[2021-02-15] MEDS: INSULIN GLARGINE 100 UNIT/ML SUBCUT SCH (20:32)
[2021-02-16] MEDS: ALBUTEROL INHALER 18 GM INH SCH ×5 (00:16→18:30)
[2021-02-16] MEDS: CHOLECALCIFEROL 1,000 UNIT TABLET PO SCH (08:19)
[2021-02-16] MEDS: methylPREDNISolone SOD SUC 40 MG/1 ML VIAL IV SCH ×2 (08:19→20:55)
[2021-02-16] MEDS: ASCORBIC ACID 500 MG TABLET PO SCH ×2 (08:19→20:55)
[2021-02-16] MEDS: FUROSEMIDE 40 MG TABLET PO SCH (08:19)
[2021-02-16] MEDS: ZINC GLUCONATE 50 MG TABLET PO SCH (08:19)
[2021-02-16] MEDS: FAMOTIDINE 20 MG/2 ML VIAL IV SCH ×2 (08:19→20:55)
[2021-02-16] MEDS: DESITIN 4OZ/NYSTATIN 15 GRAM MIXTURE PASTE TOP SCH ×2 (09:07→20:56)
[2021-02-16] MEDS: FONDAPARINUX 10 MG/0.8 ML SYRINGE SUBCUT SCH (16:30)
[2021-02-16] MEDS: INSULIN GLARGINE 100 UNIT/ML SUBCUT SCH (20:56)
[2021-02-16] MEDS: BUDESONIDE/FORMOTEROL 160-4.5 INHALER 6 GM INH SCH (20:56)
[2021-02-17] MEDS: ALBUTEROL INHALER 18 GM INH SCH ×6 (00:58→22:50)
[2021-02-17 04:52] LABS: Hematocrit 42.9 VOL% (35.7-47.0); Hemoglobin 13.3 GM/DL (12.0-16.0); Immature Granulocytes % 0.3 %; Immature Granulocytes Absolute 0.02 #; Lymphocytes # 0.6 10*3/uL (1.4-4.0); Lymphocytes % 8.9 % (21.3-54.2); Mean Corpuscular Volume 96.2 FL (87-102); Monocytes % 5.4 % (1.7-12.7); Neutrophils % 85.4 % (38.7-73.9); Red Blood Count 4.46 MC/CUMM (3.8-5.5); Red Cell Distribution Width 15.6 % (9.3-17.3); White Blood Count 6.3 T/CUMM (4-12)
[2021-02-17 04:54] LABS: Platelet Count 155 T/CUMM (130-400)
[2021-02-17 04:58] LABS: Calcium 8.9 MG/DL (8.5-10.1); Osmolality,Calculated 281.5 MOS/KG (273-304); Potassium 3.4 MMOL/L (3.5-5.1)
[2021-02-17] MEDS: POTASSIUM CHLORIDE 20 MEQ/15 ML UDCUP PER TUBE PRN ×2 (05:50→08:00)
[2021-02-17 06:47] LABS: Microcytosis Slight; Platelet Estimate Adequate; Polychromasia Slight
[2021-02-17] MEDS: CHOLECALCIFEROL 1,000 UNIT TABLET PO SCH (08:00)
[2021-02-17] MEDS: ASCORBIC ACID 500 MG TABLET PO SCH ×2 (08:00→20:25)
[2021-02-17] MEDS: methylPREDNISolone SOD SUC 40 MG/1 ML VIAL IV SCH ×2 (08:01→20:26)
[2021-02-17] MEDS: ZINC GLUCONATE 50 MG TABLET PO SCH (08:01)
[2021-02-17] MEDS: FUROSEMIDE 40 MG TABLET PO SCH (08:01)
[2021-02-17] MEDS: FAMOTIDINE 20 MG/2 ML VIAL IV SCH ×2 (08:01→20:27)
[2021-02-17] MEDS: DESITIN 4OZ/NYSTATIN 15 GRAM MIXTURE PASTE TOP SCH ×2 (08:02→20:26)
[2021-02-17] MEDS: BUDESONIDE/FORMOTEROL 160-4.5 INHALER 6 GM INH SCH ×2 (08:02→20:27)
[2021-02-17 10:09] LABS: Bilirubin,Urine Negative (Negative); Blood, Urine Large mg/dL (Negative); Glucose,Urine (UA) Negative (Negative); Ketones,Urine Negative (Negative); Mucus,Urine Occasional /LPF (Occasional); Nitrite,Urine Negative (Negative); Protein,Urine 100 MG/DL; RBC,Urine 8209 /HPF (0-4); Urine Appearance CLOUDY (Clear); Urine Color Amber (Yellow); Urine Specific Gravity 1.023 (1.001-1.035)
[2021-02-17] MEDS: FONDAPARINUX 10 MG/0.8 ML SYRINGE SUBCUT SCH (16:30)
[2021-02-18 05:18] LABS: Calcium 8.6 MG/DL (8.5-10.1)
[2021-02-18 05:24] LABS: Basophils % 0.1 % (0.0-0.8); Eosinophils % 0.1 % (0.00-10.9); Hematocrit 40.9 VOL% (35.7-47.0); Hemoglobin 12.3 GM/DL (12.0-16.0); Immature Granulocytes % 0.6 %; Immature Granulocytes Absolute 0.06 #; Lymphocytes # 0.7 10*3/uL (1.4-4.0); Lymphocytes % 7.5 % (21.3-54.2); Mean Corpuscular HGB Conc 30.1 GM/DL (32-36); Mean Corpuscular Volume 97.1 FL (87-102); Neutrophils % 84.7 % (38.7-73.9); Platelet Count 153 T/CUMM (130-400); Red Blood Count 4.21 MC/CUMM (3.8-5.5); Red Cell Distribution Width 15.4 % (9.3-17.3); White Blood Count 9.5 T/CUMM (4-12)
[2021-02-18 05:25] LABS: Osmolality,Calculated 281.5 MOS/KG (273-304); Potassium 3.3 MMOL/L (3.5-5.1)
[2021-02-18] MEDS: ALBUTEROL INHALER 18 GM INH SCH ×4 (06:11→17:55)
[2021-02-18] MEDS: POTASSIUM CHLORIDE 20 MEQ/15 ML UDCUP PER TUBE PRN (06:32)
[2021-02-18] MEDS: ZINC GLUCONATE 50 MG TABLET PO SCH (10:30)
[2021-02-18] MEDS: FAMOTIDINE 20 MG/2 ML VIAL IV SCH ×2 (10:30→20:25)
[2021-02-18] MEDS: POTASSIUM CHLORIDE 20 MEQ TABLET PO PRN (10:30)
[2021-02-18] MEDS: ASCORBIC ACID 500 MG TABLET PO SCH ×2 (10:30→20:24)
[2021-02-18] MEDS: FUROSEMIDE 40 MG TABLET PO SCH (10:30)
[2021-02-18] MEDS: methylPREDNISolone SOD SUC 40 MG/1 ML VIAL IV SCH ×2 (10:30→20:25)
[2021-02-18] MEDS: BUDESONIDE/FORMOTEROL 160-4.5 INHALER 6 GM INH SCH ×2 (10:30→21:11)
[2021-02-18] MEDS: DESITIN 4OZ/NYSTATIN 15 GRAM MIXTURE PASTE TOP SCH ×2 (10:30→21:11)
[2021-02-18] MEDS: CHOLECALCIFEROL 1,000 UNIT TABLET PO SCH (10:30)
[2021-02-18] MEDS: FONDAPARINUX 10 MG/0.8 ML SYRINGE SUBCUT SCH (16:15)
[2021-02-19] MEDS: ALBUTEROL INHALER 18 GM INH SCH ×6 (00:38→23:34)
[2021-02-19 03:55] LABS: Hematocrit 39.8 VOL% (35.7-47.0); Hemoglobin 12.3 GM/DL (12.0-16.0); Immature Granulocytes % 0.2 %; Immature Granulocytes Absolute 0.02 #; Lymphocytes # 0.6 10*3/uL (1.4-4.0); Lymphocytes % 7.6 % (21.3-54.2); Mean Corpuscular HGB Conc 30.9 GM/DL (32-36); Mean Corpuscular Volume 97.1 FL (87-102); Mean Platelet Volume 12.8 FL (9.6-12.0); Monocytes % 4.7 % (1.7-12.7); Neutrophils % 87.5 % (38.7-73.9); Platelet Count 136 T/CUMM (130-400); Red Cell Distribution Width 15.1 % (9.3-17.3); White Blood Count 8.3 T/CUMM (4-12)
[2021-02-19 04:05] LABS: Calcium 8.5 MG/DL (8.5-10.1); Osmolality,Calculated 283.4 MOS/KG (273-304); Potassium 3.7 MMOL/L (3.5-5.1)
[2021-02-19 04:19] LABS: Hypochromasia 1+; Microcytosis 1+; Platelet Estimate Adequate
[2021-02-19] MEDS: FAMOTIDINE 20 MG/2 ML VIAL IV SCH ×2 (09:16→20:24)
[2021-02-19] MEDS: FUROSEMIDE 40 MG TABLET PO SCH (09:16)
[2021-02-19] MEDS: ASCORBIC ACID 500 MG TABLET PO SCH ×2 (09:38→20:24)
[2021-02-19] MEDS: CHOLECALCIFEROL 1,000 UNIT TABLET PO SCH (09:38)
[2021-02-19] MEDS: DESITIN 4OZ/NYSTATIN 15 GRAM MIXTURE PASTE TOP SCH ×2 (09:38→20:25)
[2021-02-19] MEDS: BUDESONIDE/FORMOTEROL 160-4.5 INHALER 6 GM INH SCH ×2 (09:38→20:25)
[2021-02-19] MEDS: ZINC GLUCONATE 50 MG TABLET PO SCH (09:38)
[2021-02-19] MEDS: methylPREDNISolone SOD SUC 40 MG/1 ML VIAL IV SCH (09:38)
[2021-02-19] MEDS: FONDAPARINUX 10 MG/0.8 ML SYRINGE SUBCUT SCH (16:48)
[2021-02-20 04:46] LABS: Calcium 8.7 MG/DL (8.5-10.1); Osmolality,Calculated 284.3 MOS/KG (273-304)
[2021-02-20 04:51] LABS: Eosinophils % 0.4 % (0.00-10.9); Hematocrit 39.6 VOL% (35.7-47.0); Immature Granulocytes % 0.4 %; Immature Granulocytes Absolute 0.03 #; Lymphocytes # 1.4 10*3/uL (1.4-4.0); Lymphocytes % 19.7 % (21.3-54.2); Mean Corpuscular HGB Conc 30.3 GM/DL (32-36); Mean Platelet Volume 13.3 FL (9.6-12.0); Monocytes % 10.6 % (1.7-12.7); Neutrophils % 68.9 % (38.7-73.9); Platelet Count 147 T/CUMM (130-400); Red Cell Distribution Width 14.8 % (9.3-17.3); White Blood Count 7.1 T/CUMM (4-12)
[2021-02-20 04:55] LABS: Hypochromasia 1+; Microcytosis 1+; Platelet Estimate Adequate
[2021-02-20] MEDS: ALBUTEROL INHALER 18 GM INH SCH ×5 (06:32→23:30)
[2021-02-20] MEDS: methylPREDNISolone SOD SUC 40 MG/1 ML VIAL IV SCH (08:57)
[2021-02-20] MEDS: FUROSEMIDE 40 MG TABLET PO SCH (08:57)
[2021-02-20] MEDS: FAMOTIDINE 20 MG/2 ML VIAL IV SCH ×2 (08:57→20:04)
[2021-02-20] MEDS: BUDESONIDE/FORMOTEROL 160-4.5 INHALER 6 GM INH SCH ×2 (08:57→20:03)
[2021-02-20] MEDS: DESITIN 4OZ/NYSTATIN 15 GRAM MIXTURE PASTE TOP SCH ×2 (08:57→20:03)
[2021-02-20] MEDS: ASCORBIC ACID 500 MG TABLET PO SCH ×2 (08:57→20:04)
[2021-02-20] MEDS: ZINC GLUCONATE 50 MG TABLET PO SCH (08:57)
[2021-02-20] MEDS: CHOLECALCIFEROL 1,000 UNIT TABLET PO SCH (08:57)
[2021-02-20] MEDS: FONDAPARINUX 10 MG/0.8 ML SYRINGE SUBCUT SCH (16:00)
[2021-02-20] MEDS: POTASSIUM CHLORIDE 20 MEQ/15 ML UDCUP PER TUBE PRN (17:39)
[2021-02-21 05:05] LABS: Calcium 8.6 MG/DL (8.5-10.1); Osmolality,Calculated 285.1 MOS/KG (273-304); Potassium 3.4 MMOL/L (3.5-5.1)
[2021-02-21] MEDS: methylPREDNISolone SOD SUC 40 MG/1 ML VIAL IV SCH (09:52)
[2021-02-21] MEDS: ASCORBIC ACID 500 MG TABLET PO SCH ×2 (09:52→20:41)
[2021-02-21] MEDS: ZINC GLUCONATE 50 MG TABLET PO SCH (09:52)
[2021-02-21] MEDS: FUROSEMIDE 40 MG TABLET PO SCH (09:52)
[2021-02-21] MEDS: POTASSIUM CHLORIDE 20 MEQ/15 ML UDCUP PER TUBE PRN ×3 (09:52→16:35)
[2021-02-21] MEDS: FAMOTIDINE 20 MG/2 ML VIAL IV SCH (09:52)
[2021-02-21] MEDS: ALBUTEROL INHALER 18 GM INH SCH ×4 (09:53→18:30)
[2021-02-21] MEDS: MAGNESIUM SULF RIDER 2 GM/50 ML PREMIX IV PRN (09:53)
[2021-02-21] MEDS: BUDESONIDE/FORMOTEROL 160-4.5 INHALER 6 GM INH SCH ×2 (09:53→20:42)
[2021-02-21] MEDS: DESITIN 4OZ/NYSTATIN 15 GRAM MIXTURE PASTE TOP SCH ×2 (09:53→20:42)
[2021-02-21] MEDS: CHOLECALCIFEROL 1,000 UNIT TABLET PO SCH (09:54)
[2021-02-21] MEDS: FONDAPARINUX 10 MG/0.8 ML SYRINGE SUBCUT SCH (16:34)
[2021-02-21] MEDS: FAMOTIDINE 20 MG TABLET PO SCH (20:41)
[2021-02-22] MEDS: ALBUTEROL INHALER 18 GM INH SCH ×4 (00:45→15:40)
[2021-02-22 05:44] LABS: Calcium 8.7 MG/DL (8.5-10.1); Potassium 3.8 MMOL/L (3.5-5.1)
[2021-02-22 06:01] LABS: Osmolality,Calculated 282.3 MOS/KG (273-304)
[2021-02-22] MEDS: FUROSEMIDE 40 MG TABLET PO SCH (08:38)
[2021-02-22] MEDS: ASCORBIC ACID 500 MG TABLET PO SCH (08:38)
[2021-02-22] MEDS: ZINC GLUCONATE 50 MG TABLET PO SCH (08:38)
[2021-02-22] MEDS: CHOLECALCIFEROL 1,000 UNIT TABLET PO SCH (08:38)
[2021-02-22] MEDS: FAMOTIDINE 20 MG TABLET PO SCH (08:38)
[2021-02-22] MEDS: DESITIN 4OZ/NYSTATIN 15 GRAM MIXTURE PASTE TOP SCH (08:39)
[2021-02-22] MEDS: BUDESONIDE/FORMOTEROL 160-4.5 INHALER 6 GM INH SCH (08:39)
[2021-02-22] MEDS ORDERED: predniSONE 20 MG TABLET PO SCH (09:00)
== END 2021-02-22 15:04 | disposition swing bed (61) | DRG 207 ==
LOC: N.CC 22:51 → SUATTDRO 22:51
PROVIDERS: ADMIT Internal Medicine; ATTEND Internal Medicine